=== PATIENT | female | born 1950 | race Two or more races ===

== ENCOUNTER → 2016-07-06 | Outpatient (CLI) | payer OTHER, MEDICAID ==
[~2016-07-06] MED LIST: GLIM2TAB33 PO; HYDR12.56 PO; LOSA25TA9 PO; LOVA20TA4 PO; METF-316 PO
[2016-07-06 10:13] LABS: Basophils # (auto) 0 uL; Basophils % (auto) 0.4 % (0.0-2.0); Eosinophils # (auto) 0.1 uL; Hematocrit 45.4 % (36.0-46.0); Hemoglobin 14.9 g/dL (12.2-16.2); Lymphocytes # (auto) 2.7 uL; Lymphocytes % (auto) 38.9 % (10.0-50.0); Mean Corpuscular Hemoglobin 27.8 pg (28.0-32.0); Mean Corpuscular Hgb Conc. 32.9 g/dL (32.0-36.0); Mean Corpuscular Volume 84.5 fL (80.0-100.0); Mean Platelet Volume 7.8 fL (7.4-10.4); Monocytes # (auto) 0.4 uL; Monocytes % (auto) 5.6 % (0.0-12.0); Neutrophils # (auto) 3.7 uL; Neutrophils % (auto) 53.1 % (37.0-80.0); Platelet Count (auto) 426 10^3/uL (140-450); Red Cell Distribution Width 13.6 % (11.6-16.0)
[2016-07-06 10:25] LABS: Urine Bilirubin Negative (Negative); Urine Blood TRACE /uL (Negative); Urine Color Yellow (Yellow); Urine Ketone Negative (Negative); Urine Nitrite Negative (Negative); Urine RBC 5 /hpf (0 - 4); Urine Squamous Epithelial Cell FEW /hpf (<5); Urine Urobilinogen Normal (Negative)
[2016-07-06 10:27] LABS: BUN/Creatinine Ratio 21.5; Bilirubin, Total 0.4 mg/dL (0.2-1.0); Calcium 9.1 mg/dL (8.5-10.1); Potassium 4.5 mmol/L (3.5-5.1); Total Protein 8.1 g/dL (6.4-8.2)
[2016-07-06 10:34] LABS: Urine Glucose 4+ mg/dL (Normal)
== END | disposition home or self-care (01) ==
LOC: LAB 08:31
DX: E11.9 Type 2 diabetes mellitus without complications (principal)
CPT/HCPCS: 36415; 80053; 80061; 81001; 82043; 83036; 84443; 85025

== ENCOUNTER → 2016-10-29 | Outpatient (CLI) | payer OTHER ==
[~2016-10-29] MED LIST changes: -METF-316 PO; +METF-372 PO
== END | disposition home or self-care (01) ==
LOC: LAB 12:12
PROVIDERS: ATTEND Internal Medicine Cardiovascular Disease
DX: R07.9 Chest pain, unspecified (principal)
CPT/HCPCS: 36415; 82565; 84520

== ENCOUNTER → 2016-10-30 | Outpatient (CLI) | payer OTHER ==
[~2016-10-30] MED LIST changes: +IOHEXOL 350 MG/ML 100ML IJ ONE; +METOPROLOL TARTRATE 1MG/1ML-5ML VIAL IV ONE; +NITROGLYCERIN 0.4 MG SL TAB SL ONE
== END | disposition home or self-care (01) ==
LOC: CT 10:19
PROVIDERS: ATTEND Internal Medicine Cardiovascular Disease
DX: R07.9 Chest pain, unspecified (principal)
CPT/HCPCS: 75571; Q9967

== ENCOUNTER → 2016-11-18 | Outpatient (CLI) | payer OTHER ==
[~2016-11-18] MED LIST changes: -IOHEXOL 350 MG/ML 100ML IJ ONE; -METOPROLOL TARTRATE 1MG/1ML-5ML VIAL IV ONE; -NITROGLYCERIN 0.4 MG SL TAB SL ONE
== END | disposition home or self-care (01) ==
LOC: XYW 09:51
PROVIDERS: ATTEND Internal Medicine Cardiovascular Disease
DX: R07.9 Chest pain, unspecified (principal)
CPT/HCPCS: 93306

== ENCOUNTER → 2016-12-11 | Day surgery (SDC) | payer OTHER ==
[~2016-12-11] MED LIST changes: +ANGIOMAX 250 MG VIAL IV ONE; +ASPI81CH43 PO; +CANA300T OR; +ESCI10TA53 PO; -GLIM2TAB33 PO; -HYDR12.56 PO; +IODIXANOL 320MG/ML 100ML BTL IV ONE; +LIDOCAINE 2%HCL (LOCAL ANESTH.) INJ 20ML MDV ONE; +METO25TA62 PO; +MIDAZOLAM HCL 1MG/1ML-2 ML VIAL ONE; +SODIUM CHL 0.9% 0 ML ONE; +fentaNYL CITRATE 100 MCG/2 ML VL ONE
== END | disposition home or self-care (01) ==
LOC: CATH 09:57
PROVIDERS: ATTEND Internal Medicine Cardiovascular Disease
DX: I25.10 Atherosclerotic heart disease of native coronary artery without angina pectoris (principal)
CPT/HCPCS: 93454; C1760; C1894; J1644; J2250; J3010; J7030; Q9967

== ENCOUNTER → 2017-09-08 | Outpatient (CLI) | payer OTHER ==
[~2017-09-08] MED LIST changes: -ANGIOMAX 250 MG VIAL IV ONE; -IODIXANOL 320MG/ML 100ML BTL IV ONE; -LIDOCAINE 2%HCL (LOCAL ANESTH.) INJ 20ML MDV ONE; -MIDAZOLAM HCL 1MG/1ML-2 ML VIAL ONE; -SODIUM CHL 0.9% 0 ML ONE; -fentaNYL CITRATE 100 MCG/2 ML VL ONE
[2017-09-08 10:58] LABS: Basophils # (auto) 0 uL; Basophils % (auto) 0.6 % (0.0-2.0); Eosinophils # (auto) 0.1 uL; Eosinophils % (auto) 1.7 % (0.0-7.0); Hematocrit 45.1 % (36.0-46.0); Hemoglobin 14.9 g/dL (12.2-16.2); Lymphocytes # (auto) 2.2 uL; Lymphocytes % (auto) 39.8 % (10.0-50.0); Mean Corpuscular Hemoglobin 28.3 pg (28.0-32.0); Mean Corpuscular Hgb Conc. 32.9 g/dL (32.0-36.0); Mean Corpuscular Volume 85.8 fL (80.0-100.0); Monocytes # (auto) 0.3 uL; Neutrophils # (auto) 2.9 uL; Neutrophils % (auto) 52.9 % (37.0-80.0); Platelet Count (auto) 381 10^3/uL (140-450); Red Blood Cells 5.26 10^6/uL (4.0-5.20); Red Cell Distribution Width 13.7 % (11.8-14.3); White Blood Cell 5.6 10^3/uL (4.4-10.8)
[2017-09-08 11:31] LABS: Urine Bacteria NONE SEEN /hpf (None Seen); Urine Blood Negative /uL (Negative); Urine Mucus FEW (None Seen); Urine Specific Gravity 1.027 (1.001-1.035); Urine WBC 3 /hpf (0 - 5)
[2017-09-08 11:40] LABS: Free T4 (Free Thyroxine) 1.01 ng/dL (0.89-1.76)
[2017-09-08 11:44] LABS: BUN/Creatinine Ratio 17.8; Bilirubin, Total 0.5 mg/dL (0.2-1.0); Calcium 9.3 mg/dL (8.5-10.1); Potassium 4.3 mmol/L (3.5-5.1)
== END | disposition home or self-care (01) ==
LOC: LAB 10:29
PROVIDERS: ATTEND Internal Medicine
DX: I10 Essential (primary) hypertension (principal); E11.9 Type 2 diabetes mellitus without complications; M25.50 Pain in unspecified joint; Z79.82 Long term (current) use of aspirin; Z79.899 Other long term (current) drug therapy
CPT/HCPCS: 36415; 80053; 80061; 81001; 82043; 82607; 83036; 84439; 84443; 85025; 85379; 85652; 86225; 86235

== ENCOUNTER → 2018-02-25 | Outpatient (CLI) | payer OTHER ==
[~2018-02-25] MED LIST changes: +LOSA25TA40 PO; -LOSA25TA9 PO
[2018-02-25 11:51] LABS: Cholesterol 202 mg/dL (< 200); Triglycerides 225 mg/dL (< 150)
[2018-02-25 11:53] LABS: HDL Cholesterol 47 mg/dL (40-59); LDL Cholesterol 136 mg/dL (< 100)
== END | disposition home or self-care (01) ==
LOC: LAB 10:19
PROVIDERS: ATTEND Internal Medicine
DX: E11.9 Type 2 diabetes mellitus without complications (principal); E78.00 Pure hypercholesterolemia, unspecified
CPT/HCPCS: 36415; 80061; 83036

== ENCOUNTER → 2018-08-30 | Outpatient (CLI) | payer OTHER ==
[2018-08-30 13:07] LABS: Cholesterol 164 mg/dL (< 200); HDL Cholesterol 50 mg/dL (40-59); LDL Cholesterol 101 mg/dL (< 100); Triglycerides 142 mg/dL (< 150)
== END | disposition home or self-care (01) ==
LOC: LAB 10:14
PROVIDERS: ATTEND Internal Medicine
DX: E11.9 Type 2 diabetes mellitus without complications (principal); E78.5 Hyperlipidemia, unspecified
CPT/HCPCS: 36415; 80061; 83036

== ENCOUNTER → 2018-12-20 | Outpatient (CLI) | payer OTHER ==
[~2018-12-20] MED LIST changes: +ALBUTEROL SULF 2.5 MG/0.5ML(0.5%) NEB SOLN ONE; +LOSA25TA38 PO; -LOSA25TA40 PO
== END | disposition home or self-care (01) ==
LOC: RT 08:38
PROVIDERS: ATTEND Internal Medicine Pulmonary Disease
DX: R91.1 Solitary pulmonary nodule (principal)
CPT/HCPCS: 94060; J7611

== ENCOUNTER → 2019-03-13 | Outpatient (CLI) | payer OTHER ==
[~2019-03-13] MED LIST changes: -ALBUTEROL SULF 2.5 MG/0.5ML(0.5%) NEB SOLN ONE
== END | disposition home or self-care (01) ==
LOC: LAB 11:27
PROVIDERS: ATTEND Internal Medicine
DX: M54.2 Cervicalgia (principal); R91.8 Other nonspecific abnormal finding of lung field; I25.10 Atherosclerotic heart disease of native coronary artery without angina pectoris; Z88.5 Allergy status to narcotic agent
CPT/HCPCS: 36415; 82565; 84520

== ENCOUNTER → 2019-03-17 | Outpatient (CLI) | payer OTHER ==
[2019-03-17 08:18] LABS: Basophils # (auto) 0 uL; Basophils % (auto) 0.3 % (0.0-2.0); Eosinophils # (auto) 0.1 uL; Eosinophils % (auto) 1.1 % (0.0-7.0); Hematocrit 46.7 % (36.0-46.0); Hemoglobin 15.3 g/dL (12.2-16.2); Lymphocytes # (auto) 2.3 uL; Lymphocytes % (auto) 33.4 % (10.0-50.0); Mean Corpuscular Hemoglobin 28.3 pg (28.0-32.0); Mean Corpuscular Hgb Conc. 32.9 g/dL (32.0-36.0); Mean Corpuscular Volume 86.2 fL (80.0-100.0); Monocytes # (auto) 0.4 uL; Monocytes % (auto) 5.7 % (0.0-12.0); Neutrophils # (auto) 4.1 uL; Neutrophils % (auto) 59.5 % (37.0-80.0); Nucleated Red Blood Cells % 0.3 %; Platelet Count (auto) 355 10^3/uL (140-450); Red Blood Cells 5.42 10^6/uL (4.0-5.20); Red Cell Distribution Width 13.3 % (11.8-14.3); White Blood Cell 6.9 10^3/uL (4.4-10.8)
[2019-03-17 08:20] LABS: Urine Bacteria FEW /hpf (None Seen); Urine Blood TRACE /uL (Negative); Urine Specific Gravity 1.042 (1.001-1.035); Urine WBC 2 /hpf (0 - 5)
[2019-03-17 08:54] LABS: Free T4 (Free Thyroxine) 1.12 ng/dL (0.89-1.76)
[2019-03-17 08:59] LABS: Potassium 4.4 mmol/L (3.5-5.1)
[2019-03-17 09:03] LABS: Albumin 3.9 g/dL (3.4-5.0); BUN/Creatinine Ratio 17.9; Calcium 8.9 mg/dL (8.5-10.1)
[2019-03-17 09:06] LABS: Bilirubin, Total 0.6 mg/dL (0.2-1.0); Total Protein 7.9 g/dL (6.4-8.2)
== END | disposition home or self-care (01) ==
LOC: LAB 07:47
PROVIDERS: ATTEND Internal Medicine
DX: E11.42 Type 2 diabetes mellitus with diabetic polyneuropathy (principal); I25.10 Atherosclerotic heart disease of native coronary artery without angina pectoris; Z88.5 Allergy status to narcotic agent
CPT/HCPCS: 36415; 80053; 80061; 81001; 82043; 82607; 83036; 84439; 84443; 85025; 85652

== ENCOUNTER → 2019-07-14 | Outpatient (CLI) | payer OTHER ==
[~2019-07-14] MED LIST changes: -METO25TA62 PO; +METO25TA93 PO
== END | disposition home or self-care (01) ==
LOC: LAB 10:25
PROVIDERS: ATTEND Internal Medicine
DX: E11.21 Type 2 diabetes mellitus with diabetic nephropathy (principal); E04.1 Nontoxic single thyroid nodule
CPT/HCPCS: 36415; 83036; 86376

== ENCOUNTER → 2019-08-30 | Outpatient (CLI) | payer OTHER | END | disposition home or self-care (01) | LOC: US 10:34 | PROVIDERS: ATTEND Internal Medicine | DX: E04.1 Nontoxic single thyroid nodule (principal); Z88.5 Allergy status to narcotic agent; Z79.899 Other long term (current) drug therapy; Z98.890 Other specified postprocedural states | CPT/HCPCS: 10005; 10022; 76942 ==

== ENCOUNTER → 2019-12-01 | Outpatient (CLI) | payer OTHER ==
[2019-12-01 09:16] LABS: Potassium 4.2 mmol/L (3.5-5.1)
[2019-12-01 09:23] LABS: Albumin 3.9 g/dL (3.4-5.0); BUN/Creatinine Ratio 26.3; Bilirubin, Total 0.6 mg/dL (0.2-1.0); Total Protein 7.8 g/dL (6.4-8.2)
== END | disposition home or self-care (01) ==
LOC: LAB 08:21
PROVIDERS: ATTEND Internal Medicine
DX: E11.9 Type 2 diabetes mellitus without complications (principal); E78.00 Pure hypercholesterolemia, unspecified
CPT/HCPCS: 36415; 80053; 83036; 83721; 84439; 84443

== ENCOUNTER → 2021-07-11 | Outpatient (CLI) | payer OTHER ==
[~2021-07-11] MED LIST changes: +ESCI-28 PO; -ESCI10TA53 PO
[2021-07-11 09:56] LABS: Urine Bacteria NONE SEEN /hpf (None Seen); Urine Blood Negative /uL (Negative); Urine Mucus FEW (None Seen); Urine Specific Gravity 1.025 (1.001-1.035); Urine WBC 9 /hpf (0 - 5)
[2021-07-11 10:11] LABS: Potassium 4.3 mmol/L (3.5-5.1)
[2021-07-11 10:23] LABS: BUN/Creatinine Ratio 24.7; Bilirubin, Total 0.3 mg/dL (0.2-1.0); Calcium 9.4 mg/dL (8.5-10.1); Total Protein 7.8 g/dL (6.4-8.2)
[2021-07-11 11:10] LABS: Basophils # (auto) 0.2 10 ^3/uL (0-0.2); Basophils % (auto) 2.5 % (0.0-2.0); Eosinophils # (auto) 0.1 10 ^3/uL (0-0.8); Eosinophils % (auto) 2.1 % (0.0-7.0); Hematocrit 40.7 % (36.0-46.0); Hemoglobin 13.6 g/dL (12.2-16.2); Lymphocytes # (auto) 2.3 10 ^3/uL (0.4-5.4); Lymphocytes % (auto) 36.5 % (10.0-50.0); Mean Corpuscular Hemoglobin 28.5 pg (28.0-32.0); Mean Corpuscular Hgb Conc. 33.5 g/dL (32.0-36.0); Mean Corpuscular Volume 85.1 fL (80.0-100.0); Monocytes # (auto) 0.3 10 ^3/uL (0-1.3); Monocytes % (auto) 5.3 % (0.0-12.0); Neutrophils # (auto) 3.4 10 ^3/uL (1.6-8.6); Neutrophils % (auto) 53.6 % (37.0-80.0); Nucleated Red Blood Cells % 0.1 %; Red Blood Cells 4.79 10^6/uL (4.0-5.20); Red Cell Distribution Width 13.2 % (11.8-14.3); White Blood Cell 6.3 10^3/uL (4.4-10.8)
== END | disposition home or self-care (01) ==
LOC: LAB 09:09
PROVIDERS: ATTEND Internal Medicine
DX: E11.9 Type 2 diabetes mellitus without complications (principal); I10 Essential (primary) hypertension
CPT/HCPCS: 36415; 80053; 80061; 81001; 82043; 82607; 83036; 84439; 84443; 85025; 85652

== ENCOUNTER → 2022-01-01 | Outpatient (CLI) | payer OTHER ==
[2022-01-01 14:18] LABS: Basophils # (auto) 0 10 ^3/uL (0-0.2); Basophils % (auto) 0.5 % (0.0-2.0); Eosinophils # (auto) 0.2 10 ^3/uL (0-0.8); Eosinophils % (auto) 2.2 % (0.0-7.0); Hematocrit 42.7 % (36.0-46.0); Hemoglobin 13.9 g/dL (12.2-16.2); Lymphocytes # (auto) 2.8 10 ^3/uL (0.4-5.4); Lymphocytes % (auto) 39.8 % (10.0-50.0); Mean Corpuscular Hgb Conc. 32.5 g/dL (32.0-36.0); Mean Corpuscular Volume 86.2 fL (80.0-100.0); Monocytes # (auto) 0.4 10 ^3/uL (0-1.3); Monocytes % (auto) 5.6 % (0.0-12.0); Neutrophils # (auto) 3.7 10 ^3/uL (1.6-8.6); Neutrophils % (auto) 51.9 % (37.0-80.0); Red Blood Cells 4.95 10^6/uL (4.0-5.20); Red Cell Distribution Width 13.7 % (11.8-14.3); White Blood Cell 7.1 10^3/uL (4.4-10.8)
[2022-01-01 15:11] LABS: Albumin 4.2 g/dL (3.4-5.0); Calcium 8.8 mg/dL (8.5-10.1); Potassium 4.2 mmol/L (3.5-5.1)
[2022-01-01 15:14] LABS: Bilirubin, Total 0.4 mg/dL (0.2-1.0); Total Protein 7.8 g/dL (6.4-8.2)
[2022-01-01 15:23] LABS: % Iron Saturation 11.1 % (15-50)
== END | disposition home or self-care (01) ==
LOC: LAB 13:52
PROVIDERS: ATTEND Internal Medicine
DX: E11.9 Type 2 diabetes mellitus without complications (principal); I10 Essential (primary) hypertension; L65.9 Nonscarring hair loss, unspecified
CPT/HCPCS: 36415; 80053; 83036; 83540; 83550; 84439; 84443; 85025

== ENCOUNTER → 2022-01-12 | Outpatient (CLI) | payer OTHER | END | disposition home or self-care (01) | LOC: XYW 08:41 | PROVIDERS: ATTEND Internal Medicine | DX: I34.0 Nonrheumatic mitral (valve) insufficiency (principal); I10 Essential (primary) hypertension | CPT/HCPCS: 93306 ==

== ENCOUNTER → 2022-01-30 | Outpatient (CLI) | payer OTHER | END | disposition home or self-care (01) | LOC: XYW 08:50 | PROVIDERS: ATTEND Internal Medicine | DX: Z01.810 Encounter for preprocedural cardiovascular examination (principal) | CPT/HCPCS: 78452; 93017; A9500 ==

== ENCOUNTER 2022-03-11 07:06 | Inpatient (IN) | payer OTHER ==
[2022-03-10 10:36] LABS: Basophils # (auto) 0 10 ^3/uL (0-0.2); Basophils % (auto) 0.5 % (0.0-2.0); Eosinophils # (auto) 0.1 10 ^3/uL (0-0.8); Eosinophils % (auto) 1.4 % (0.0-7.0); Hematocrit 41.3 % (36.0-46.0); Lymphocytes % (auto) 39.4 % (10.0-50.0); Mean Corpuscular Hemoglobin 28.8 pg (28.0-32.0); Mean Corpuscular Hgb Conc. 33.8 g/dL (32.0-36.0); Mean Corpuscular Volume 85.2 fL (80.0-100.0); Monocytes # (auto) 0.4 10 ^3/uL (0-1.3); Monocytes % (auto) 4.9 % (0.0-12.0); Neutrophils % (auto) 53.8 % (37.0-80.0); Nucleated Red Blood Cells % 0.1 %; Red Blood Cells 4.85 10^6/uL (4.0-5.20); Red Cell Distribution Width 13.2 % (11.8-14.3); White Blood Cell 7.5 10^3/uL (4.4-10.8)
[2022-03-10 10:57] LABS: INR 0.95 (0.9-1.15); Partial Thromboplastin Time 29.4 sec (24.6-33.4)
[2022-03-10 11:01] LABS: Urine Bacteria NONE SEEN /hpf (None Seen); Urine Blood Negative /uL (Negative); Urine Specific Gravity 1.015 (1.001-1.035); Urine WBC 5 /hpf (0 - 5)
[2022-03-10 11:48] LABS: Albumin 3.9 g/dL (3.4-5.0); BUN/Creatinine Ratio 22.4; Calcium 9.2 mg/dL (8.5-10.1); Potassium 4.3 mmol/L (3.5-5.1)
[2022-03-10 11:55] LABS: Bilirubin, Total 0.8 mg/dL (0.2-1.0); Total Protein 7.9 g/dL (6.4-8.2)
[~2022-03-11] VITALS: Ht 157.5 cm; Wt 69.8 kg
[2022-03-11] VITALS (20 sets, daily range): BP systolic 122–171; BP diastolic 45–69
[~2022-03-11 07:06] MED LIST changes: -ESCI-28 PO; +GLIP-110 PO; +IRBE300T79 PO; -LOSA25TA38 PO
[2022-03-11] MEDS ORDERED: ceFAZolin 1GM/50ML 100 ML IV ONE (07:16)
[2022-03-11] MEDS ORDERED: fentaNYL CITRATE 100 MCG/2 ML VL ONE ×2 (08:40→09:44)
[2022-03-11] MEDS ORDERED: ROCURONIUM 10MG/ML 10ML VIAL IV ONE (08:40)
[2022-03-11] MEDS ORDERED: MIDAZOLAM HCL 2MG/2ML 2ml VIAL (1mg/ml) ONE (08:40)
[2022-03-11] MEDS ORDERED: ONDANSETRON HCL 4 MG/2 ML VIAL IV PRN ×2 (10:45→11:15)
[2022-03-11] MEDS: D5W/SOD CHL 0.45%/KCL 20MEQ 1,000 ML IV SCH ×2 (10:45→20:01)
[2022-03-11] MEDS ORDERED: HYDROmorphone HCL 2 MG/ML VL/or syr IV PRN ×2 (10:45→11:15)
[2022-03-11] MEDS ORDERED: GLYCOPYRROLATE 0.2 MG/ML 1ML VIAL ONE (10:54)
[2022-03-11] MEDS ORDERED: PROPOFOL 10 MG/ML 20 ML IV ONE (10:54)
[2022-03-11] MEDS ORDERED: ePHEDrine SULFATE 50 MG/ML AMP ONE (10:54)
[2022-03-11] MEDS ORDERED: NEOSTIGMINE 1 MG/ML INJ (10mg/10ML VIAL) ONE (10:54)
[2022-03-11] MEDS ORDERED: LIDOCAINE 2% (LOCAL ANESTH.) PF 5ml SDV ONE (10:54)
[2022-03-11] MEDS ORDERED: ONDANSETRON HCL 4 MG/2 ML VIAL ONE (10:55)
[2022-03-11] MEDS ORDERED: HYDROmorphone HCL 2 MG/ML VL/or syr ONE (11:36)
[2022-03-11] MEDS: HYDROmorphone HCL 2 MG/ML VL/or syr IV PRN ×2 (11:37→11:54)
[2022-03-11] MEDS ORDERED: DEXTROSE (50%) 50ML SYRG IV PRN (14:45)
[2022-03-11] MEDS ORDERED: MORPHINE SULFATE INJ 2 MG/ml SYRG IV PRN (14:45)
[2022-03-11] MEDS ORDERED: HYDROcodone-ACET 5/325MG TAB PO PRN (14:45)
[2022-03-11] MEDS ORDERED: FAMOTIDINE (10MG/ML) 2ML VL IV ONE (14:45)
[2022-03-11] MEDS ORDERED: METOPROLOL SUCCINATE XL 50 MG TAB PO ONE (14:45)
[2022-03-11] MEDS: ceFAZolin 1GM/50ML 50 ML IV SCH ×2 (15:18→22:28)
[2022-03-11] MEDS: ACCU-CHEK COMFORT CURVE STRIP VI SCH ×2 (17:36→23:53)
[2022-03-11] MEDS: InsuLIN REG 1unit/0.01ml Soln (100units/ml) SC SCH ×2 (17:41→23:53)
[2022-03-12] VITALS (60 sets, daily range): BP systolic 94–142; BP diastolic 30–96
[2022-03-12 04:40] LABS: Basophils # (auto) 0 10 ^3/uL (0-0.2); Basophils % (auto) 0.3 % (0.0-2.0); Eosinophils # (auto) 0.1 10 ^3/uL (0-0.8); Eosinophils % (auto) 1.1 % (0.0-7.0); Hematocrit 37.7 % (36.0-46.0); Hemoglobin 12.5 g/dL (12.2-16.2); Lymphocytes # (auto) 2.3 10 ^3/uL (0.4-5.4); Lymphocytes % (auto) 25.5 % (10.0-50.0); Mean Corpuscular Hemoglobin 29.2 pg (28.0-32.0); Mean Corpuscular Hgb Conc. 33.2 g/dL (32.0-36.0); Monocytes # (auto) 0.9 10 ^3/uL (0-1.3); Monocytes % (auto) 9.5 % (0.0-12.0); Neutrophils # (auto) 5.8 10 ^3/uL (1.6-8.6); Neutrophils % (auto) 63.6 % (37.0-80.0); Nucleated Red Blood Cells % 0.1 %; Red Blood Cells 4.28 10^6/uL (4.0-5.20); White Blood Cell 9.1 10^3/uL (4.4-10.8)
[2022-03-12 04:46] LABS: Albumin 3.2 g/dL (3.4-5.0); Calcium 8.2 mg/dL (8.5-10.1); Potassium 4.2 mmol/L (3.5-5.1)
[2022-03-12 04:49] LABS: BUN/Creatinine Ratio 6.1; Bilirubin, Total 0.7 mg/dL (0.2-1.0); Total Protein 6.2 g/dL (6.4-8.2)
[2022-03-12] MEDS: ceFAZolin 1GM/50ML 50 ML IV SCH ×3 (05:52→21:33)
[2022-03-12] MEDS: ACCU-CHEK COMFORT CURVE STRIP VI SCH ×3 (06:14→16:44)
[2022-03-12] MEDS: InsuLIN REG 1unit/0.01ml Soln (100units/ml) SC SCH ×3 (06:14→17:03)
[2022-03-12] MEDS: D5W/SOD CHL 0.45%/KCL 20MEQ 1,000 ML IV SCH (06:51)
[2022-03-12] MEDS: FAMOTIDINE (10MG/ML) 2ML VL IV SCH (09:01)
[2022-03-12] MEDS: PANTOPRAZOLE 40 MG/10 ML VIAL INJ IV SCH (09:02)
[2022-03-12] MEDS: METOPROLOL SUCCINATE XL 50 MG TAB PO SCH (09:03)
[2022-03-12] MEDS ORDERED: D5W/SOD CHL 0.45%/KCL 20MEQ 1,000 ML IV SCH (14:45)
[2022-03-12] MEDS: SODIUM CHLORIDE 0.9% 1,000 ML IV SCH (14:56)
[2022-03-12] MEDS: ACETAMINOPHEN 325 MG TAB PO PRN (14:59)
[2022-03-13] VITALS (9 sets, daily range): BP systolic 125–151; BP diastolic 39–63
[2022-03-13] MEDS: ACCU-CHEK COMFORT CURVE STRIP VI SCH ×3 (00:01→11:39)
[2022-03-13 04:29] LABS: Basophils # (auto) 0 10 ^3/uL (0-0.2); Basophils % (auto) 0.3 % (0.0-2.0); Eosinophils # (auto) 0.1 10 ^3/uL (0-0.8); Eosinophils % (auto) 1.2 % (0.0-7.0); Hematocrit 37.6 % (36.0-46.0); Hemoglobin 12.3 g/dL (12.2-16.2); Lymphocytes # (auto) 2.2 10 ^3/uL (0.4-5.4); Lymphocytes % (auto) 26.8 % (10.0-50.0); Mean Corpuscular Hemoglobin 28.1 pg (28.0-32.0); Mean Corpuscular Hgb Conc. 32.8 g/dL (32.0-36.0); Mean Corpuscular Volume 85.8 fL (80.0-100.0); Monocytes # (auto) 0.8 10 ^3/uL (0-1.3); Monocytes % (auto) 10.1 % (0.0-12.0); Neutrophils # (auto) 5.2 10 ^3/uL (1.6-8.6); Neutrophils % (auto) 61.6 % (37.0-80.0); Nucleated Red Blood Cells % 0.1 %; Red Blood Cells 4.38 10^6/uL (4.0-5.20); White Blood Cell 8.4 10^3/uL (4.4-10.8)
[2022-03-13 04:43] LABS: Calcium 8.2 mg/dL (8.5-10.1)
[2022-03-13] MEDS: ceFAZolin 1GM/50ML 50 ML IV SCH ×2 (05:32→14:00)
[2022-03-13] MEDS: ACETAMINOPHEN 325 MG TAB PO PRN ×2 (05:33→12:32)
[2022-03-13] MEDS: InsuLIN REG 1unit/0.01ml Soln (100units/ml) SC SCH ×3 (06:35→11:39)
[2022-03-13] MEDS: SODIUM CHLORIDE 0.9% 1,000 ML IV SCH (07:25)
[2022-03-13] MEDS: FAMOTIDINE (10MG/ML) 2ML VL IV SCH (09:14)
[2022-03-13] MEDS: PANTOPRAZOLE 40 MG/10 ML VIAL INJ IV SCH (09:14)
[2022-03-13] MEDS: METOPROLOL SUCCINATE XL 50 MG TAB PO SCH (09:15)
== END 2022-03-13 16:30 | disposition home or self-care (01) | DRG 627 ==
LOC: SUR 07:06 → TELE 11:41 → ICU WEST 13:02 → TELE-WESTW 03-13 12:58
PROVIDERS: ADMIT Internal Medicine; ATTEND Internal Medicine
PROC: 0GTG0ZZ Resection of Left Thyroid Gland Lobe, Open Approach (ICD-10-PCS; principal; 2022-03-11 08:39)
DX: E07.9 Disorder of thyroid, unspecified (principal); E11.9 Type 2 diabetes mellitus without complications; E78.5 Hyperlipidemia, unspecified; E83.51 Hypocalcemia; I10 Essential (primary) hypertension; Z20.822 Contact with and (suspected) exposure to COVID-19; Z88.5 Allergy status to narcotic agent
CPT/HCPCS: 36415; 80048; 80053; 81001; 82962; 85025; 85610; 85730; 86850; 86900; 86901; 87081; C9113; G0378; J0690; J2001; J2250; J2405; J2704; J3490

== ENCOUNTER → 2022-05-01 | Outpatient (CLI) | payer OTHER | END | disposition home or self-care (01) | LOC: LAB 10:43 | PROVIDERS: ATTEND Internal Medicine | DX: E89.0 Postprocedural hypothyroidism (principal) | CPT/HCPCS: 36415; 84439; 84443 ==

== ENCOUNTER → 2022-06-02 | Outpatient (CLI) | payer OTHER ==
[2022-06-02 08:52] LABS: Basophils # (auto) 0 10 ^3/uL (0-0.2); Basophils % (auto) 0.6 % (0.0-2.0); Eosinophils # (auto) 0.1 10 ^3/uL (0-0.8); Eosinophils % (auto) 1.8 % (0.0-7.0); Hematocrit 43.8 % (36.0-46.0); Lymphocytes # (auto) 2.3 10 ^3/uL (0.4-5.4); Lymphocytes % (auto) 32.7 % (10.0-50.0); Mean Corpuscular Hemoglobin 27.5 pg (28.0-32.0); Mean Corpuscular Volume 86.1 fL (80.0-100.0); Monocytes # (auto) 0.4 10 ^3/uL (0-1.3); Monocytes % (auto) 5.4 % (0.0-12.0); Neutrophils # (auto) 4.2 10 ^3/uL (1.6-8.6); Neutrophils % (auto) 59.5 % (37.0-80.0); Red Blood Cells 5.09 10^6/uL (4.0-5.20); Red Cell Distribution Width 13.7 % (11.8-14.3)
[2022-06-02 08:58] LABS: Urine Bacteria NONE SEEN /hpf (None Seen); Urine Blood Negative /uL (Negative); Urine Mucus FEW (None Seen); Urine Specific Gravity 1.024 (1.001-1.035); Urine WBC 4 /hpf (0 - 5)
[2022-06-02 09:27] LABS: Potassium 4.7 mmol/L (3.5-5.1)
[2022-06-02 09:33] LABS: Free T4 (Free Thyroxine) 1.19 ng/dL (0.89-1.76)
[2022-06-02 09:35] LABS: Albumin 4.2 g/dL (3.4-5.0); BUN/Creatinine Ratio 28.2; Bilirubin, Total 0.5 mg/dL (0.2-1.0); Calcium 9.2 mg/dL (8.5-10.1)
[2022-06-02 09:37] LABS: Micro Albumin 21.3 mg/L (0-30.0)
== END | disposition home or self-care (01) ==
LOC: LAB 08:33
PROVIDERS: ATTEND Internal Medicine
DX: I10 Essential (primary) hypertension (principal); E11.9 Type 2 diabetes mellitus without complications
CPT/HCPCS: 36415; 80053; 80061; 81001; 82043; 82570; 82607; 83036; 84439; 84443; 85025; 85652

== ENCOUNTER → 2022-12-21 | Outpatient (CLI) | payer OTHER ==
[2022-12-21 15:58] LABS: Hematocrit 41.4 % (36.0-46.0); Hemoglobin 13.6 g/dL (12.2-16.2); Mean Corpuscular Hgb Conc. 32.9 g/dL (32.0-36.0); Mean Corpuscular Volume 85.1 fL (80.0-100.0); Red Blood Cells 4.86 10^6/uL (4.0-5.20); Red Cell Distribution Width 13.9 % (11.8-14.3); White Blood Cell 10.9 10^3/uL (4.4-10.8)
[2022-12-21 16:03] LABS: Basophils % (manual) 0 (0.0-2.0); Blast Cells 0; Metamyelocytes % 0; Myelocytes % 0; Promyelocytes % 0; Reactive Lymphocytes 0
[2022-12-21 16:31] LABS: Albumin 4.1 g/dL (3.4-5.0); Potassium 3.5 mmol/L (3.5-5.1)
[2022-12-21 16:34] LABS: BUN/Creatinine Ratio 13.6 (10.0-20.0); Bilirubin, Total 0.4 mg/dL (0.2-1.0); Total Protein 7.5 g/dL (6.4-8.2)
[2022-12-21 17:53] LABS: Band Neutrophils % (manual) 0; Eosinophils % (manual) 1 (0-7); Lymphocytes % (manual) 56 (10.0-50.0); Monocytes % (manual) 9 (0-12)
[2022-12-21 17:54] LABS: Platelet Estimate Adequate; RBC Morphology Normal
== END | disposition home or self-care (01) ==
LOC: LAB 15:44
PROVIDERS: ATTEND Internal Medicine
DX: E11.9 Type 2 diabetes mellitus without complications (principal); I10 Essential (primary) hypertension
CPT/HCPCS: 36415; 80053; 83036; 85007; 85027

== ENCOUNTER → 2022-12-31 | Outpatient (CLI) | payer OTHER ==
[2022-12-31 11:26] LABS: Basophils # (auto) 0 10 ^3/uL (0-0.2); Basophils % (auto) 0.5 % (0.0-2.0); Eosinophils # (auto) 0.2 10 ^3/uL (0-0.8); Eosinophils % (auto) 2.2 % (0.0-7.0); Hematocrit 42.8 % (36.0-46.0); Lymphocytes % (auto) 36.1 % (10.0-50.0); Mean Corpuscular Hemoglobin 27.8 pg (28.0-32.0); Mean Corpuscular Hgb Conc. 32.7 g/dL (32.0-36.0); Monocytes # (auto) 0.4 10 ^3/uL (0-1.3); Monocytes % (auto) 5.4 % (0.0-12.0); Neutrophils # (auto) 4.7 10 ^3/uL (1.6-8.6); Neutrophils % (auto) 55.8 % (37.0-80.0); Red Blood Cells 5.03 10^6/uL (4.0-5.20); Red Cell Distribution Width 13.9 % (11.8-14.3); White Blood Cell 8.4 10^3/uL (4.4-10.8)
[2022-12-31 11:53] LABS: Erythrocyte Sedimentation Rate 7 mm/hr (0-20)
== END | disposition home or self-care (01) ==
LOC: LAB 10:59
PROVIDERS: ATTEND Internal Medicine
DX: L30.9 Dermatitis, unspecified (principal)
CPT/HCPCS: 36415; 83615; 84439; 85025; 85652

== ENCOUNTER → 2024-02-22 | Outpatient (CLI) | payer OTHER ==
[2024-02-22 11:03] LABS: Alanine Aminotransferase 18 U/L (7-40); Alkaline Phosphatase 121 U/L (46-116); Anion Gap 7 (5-15); Aspartate Aminotransferase 11 U/L (13-40); BUN/Creatinine Ratio 21.6 (10.0-20.0); Blood Urea Nitrogen 16 mg/dL (9-23); Carbon Dioxide 27 mmol/L (20-31); Chloride 106 mmol/L (98-107); Creatinine, Urine 84.78 mg/dL (30.0-125.0); Glucose 111 mg/dL (74-106); LDL Cholesterol 76 mg/dL (< 100); Potassium 4.4 mmol/L (3.5-5.1); Sodium 140 mmol/L (136-145); Triglycerides 197 mg/dL (< 150)
[2024-02-22 11:04] LABS: Bilirubin, Total 0.7 mg/dL (0.2-1.0); Cholesterol 146 mg/dL (< 200); HDL Cholesterol 47 mg/dL (40-59); Total Protein 8.1 g/dL (5.7-8.2)
== END | disposition home or self-care (01) ==
LOC: LAB 09:46
PROVIDERS: ATTEND Internal Medicine Endocrinology, Diabetes & Metabolism
DX: E11.65 Type 2 diabetes mellitus with hyperglycemia (principal); E04.2 Nontoxic multinodular goiter
CPT/HCPCS: 36415; 80053; 80061; 82043; 82570; 83036; 84439; 84443

== ENCOUNTER → 2024-02-29 | Outpatient (CLI) | payer OTHER ==
--- NOTE | 2024-02-29 12:32 | DVH ---
US US GUIDANCE FOR NEEDLE PLACEME, HISTORY: TYROID NODULE PROCEDURE: An informed consent was obtained. Limited localization ultrasound of the thyroid gland was obtained. The right neck base was prepped with chlorhexidine which was allowed to dry and draped in the usual sterile fashion. Timeout was performed. The skin and soft tissues were infiltrated with 1% Xylocaine. With ultrasound guidance, multiple fine needle aspirate biopsies of the nodules were obtai brittany using a 25 gauge Secure-cut needle. The neck was cleaned and a sterile band-aid applied. The spec imens were sent to pathology for analysis. No immediate complication was identified. FINDINGS: Right upper/mid pole, solid thyroid nodule. Limited ultrasound of the thyroid during the b iopsy demonstrates biopsy needle within nodule. IMPRESSION: Successful ultrasound FNA biopsy of right thyroid nodule.
== END | disposition home or self-care (01) ==
LOC: XYW 11:05
PROVIDERS: ATTEND Internal Medicine
DX: E04.1 Nontoxic single thyroid nodule (principal)
CPT/HCPCS: 10005; 76536; 76942

== ENCOUNTER → 2024-03-07 | Outpatient (CLI) | payer OTHER ==
[2024-03-07 12:30] LABS: Basophils # (auto) 0 10 ^3/uL (0-0.2); Basophils % (auto) 0.4 % (0.0-2.0); Eosinophils # (auto) 0.1 10 ^3/uL (0-0.8); Eosinophils % (auto) 1.5 % (0.0-7.0); Hematocrit 44.1 % (36.0-46.0); Hemoglobin 14.8 g/dL (12.2-16.2); Lymphocytes # (auto) 3.5 10 ^3/uL (0.4-5.4); Mean Corpuscular Hemoglobin 28.7 pg (28.0-32.0); Mean Corpuscular Hgb Conc. 33.5 g/dL (32.0-36.0); Mean Corpuscular Volume 85.7 fL (80.0-100.0); Monocytes # (auto) 0.5 10 ^3/uL (0-1.3); Monocytes % (auto) 5.5 % (0.0-12.0); Neutrophils # (auto) 4.5 10 ^3/uL (1.6-8.6); Neutrophils % (auto) 52.6 % (37.0-80.0); Nucleated Red Blood Cells % 0.2 %; Platelet Count (auto) 367 10^3/uL (140-450); Red Blood Cells 5.15 10^6/uL (4.0-5.20); Red Cell Distribution Width 13.3 % (11.8-14.3); White Blood Cell 8.6 10^3/uL (4.4-10.8)
[2024-03-07 12:32] LABS: Erythrocyte Sedimentation Rate 7 mm/hr (0-20)
== END | disposition home or self-care (01) ==
LOC: LAB 11:11
PROVIDERS: ATTEND Internal Medicine
DX: R19.4 Change in bowel habit (principal)
CPT/HCPCS: 36415; 82270; 85025; 85652; 86141

== ENCOUNTER → 2024-03-08 | Outpatient (CLI) | payer OTHER | END | disposition home or self-care (01) | LOC: LAB 15:37 | PROVIDERS: ATTEND Internal Medicine | DX: Z12.11 Encounter for screening for malignant neoplasm of colon (principal); R19.4 Change in bowel habit | CPT/HCPCS: 82270; 87045; 87177; 87427 ==

== ENCOUNTER 2024-08-05 07:05 | Day surgery (SDC) | payer OTHER ==
[2024-07-31 11:19] LABS: Basophils # (auto) 0 10 ^3/uL (0-0.2); Basophils % (auto) 0.5 % (0.0-2.0); Eosinophils # (auto) 0.1 10 ^3/uL (0-0.8); Eosinophils % (auto) 1.6 % (0.0-7.0); Hematocrit 45.7 % (36.0-46.0); Hemoglobin 14.7 g/dL (12.2-16.2); Lymphocytes % (auto) 42.1 % (10.0-50.0); Mean Corpuscular Hgb Conc. 32.2 g/dL (32.0-36.0); Monocytes # (auto) 0.5 10 ^3/uL (0-1.3); Monocytes % (auto) 7.3 % (0.0-12.0); Neutrophils # (auto) 3.5 10 ^3/uL (1.6-8.6); Neutrophils % (auto) 48.5 % (37.0-80.0); Nucleated Red Blood Cells % 0.1 %; Platelet Count (auto) 366 10^3/uL (140-450); Red Blood Cells 5.25 10^6/uL (4.0-5.20); Red Cell Distribution Width 13.9 % (11.8-14.3); White Blood Cell 7.2 10^3/uL (4.4-10.8)
[2024-07-31 11:36] LABS: INR 0.93 (0.9-1.15); Partial Thromboplastin Time 27.1 SEC (24.5-34.5); Prothrombin Time 9.9 sec (9.3-11.8)
[2024-07-31 12:01] LABS: Alanine Aminotransferase 18 U/L (7-40); Anion Gap 7 (5-15); Aspartate Aminotransferase 14 U/L (13-40); BUN/Creatinine Ratio 24.4 (10.0-20.0); Blood Urea Nitrogen 19 mg/dL (9-23); Calcium 10.1 mg/dL (8.7-10.4); Carbon Dioxide 30 mmol/L (20-31); Chloride 104 mmol/L (98-107); Glucose 75 mg/dL (74-106); Sodium 141 mmol/L (136-145)
[2024-07-31 12:02] LABS: Albumin 5.2 g/dL (3.2-4.8); Alkaline Phosphatase 122 U/L (46-116)
[2024-07-31 12:04] LABS: Bilirubin, Total 0.6 mg/dL (0.2-1.0)
[~2024-08-05] VITALS: Ht 157.5 cm; Wt 72.6 kg
[~2024-08-05 07:05] MED LIST changes: -ASPI81CH43 PO; -CANA300T OR; +ESCI10TA PO; -LOVA20TA4 PO; +LOVA40TA72 PO; -METF-372 PO; -METO25TA93 PO; +PIO30T PO
[2024-08-05] MEDS ORDERED: diphenhdrAMINE HCL 50 MG/1 ML VL ONE (07:32)
[2024-08-05 09:29] VITALS: PULSE 79; RESP 19; O2SAT 99
[2024-08-05] MEDS: MIDAZOLAM HCL 2MG/2ML 2ml VIAL (1mg/ml) ONE (09:33)
[2024-08-05] MEDS: fentaNYL CITRATE 100 MCG/2 ML VL ONE (09:33)
--- NOTE | 2024-08-05 09:50 | DVHNC2 ---
Procedure - DATE OF PROCEDURE: August 05, 2024 SURGEON: MARYLU NEW MD REFERRING PROVIDER: Dr Zenon NUNEZ PRE-PROCEDURE DIAGNOSIS: 1. COLON CANCER SCREENING POSTPROCEDURE DIAGNOSIS 1. Two transverse colon polyps 2. Internal hemorrhoids 3. One descending colon polyp 4. Moderate left-sided diverticulosis Procedure performed 1. Colonoscopy with cold snare polypectomy 2. Colonoscopy with moderate sedation 3. Colonoscopy with cold biopsy polypectomy INDICATIONS FOR PROCEDURE: The patient is a 74-year-old female who presents for outpatient colonoscopy for screening, last colonoscopy was in 2014. MEDICATIONS USED: 4 mg of Versed IV and 75 mcg IV given in incremental doses DETAILS OF THE PROCEDURE: Informed consent was obtained after risks, benefits, and alternatives, were discussed at length with the patient. The patient gave consent to the procedure as well as the medication used for sedation. The patient was placed in the left lateral decubitus position. Digital rectal exam showed internal hemorrhoids. An Olympus variable torsion pediatric colonoscope was inserted into the rectum and advanced to the cecum. The cecum was identified by the ileocecal valve and the appendiceal orifice. The scope was then withdrawn the prep was good with only small amounts of liquid stool. The patient had two transverse colon polyps removed with cold snare polypectomy measuring 5 mm each. There was a small descending colon polyp measuring 3 mm removed with cold biopsy forceps. The patient had moderate left-sided diverticulosis. Retroflexion showed internal hemorrhoids. The patient tolerated the procedure well. [place] BOWEL PREP SCORE: 8 COLONOSCOPY START TIME: 937 CECUM TIME: 939 COLONOSCOPY END TIME: 947 IMPRESSION: 1. 3 colon polyps moderate left-sided diverticulosis and small internal hemorrhoids RECOMMENDATIONS: 1. Follow up in GI clinic for procedure and pathology results 2. High-fiber diet 3. Follow up with primary care physician 4. Medical management of the hemorrhoids 5. Repeat colonoscopy in three years unless otherwise indicated I WOULD LIKE TO THANK DR. Yarbrough FOR THIS REFERRAL MARYLU NEW MD Aug 05, 2024 09:50
[2024-08-05 09:52] VITALS: TEMP 97.8
[2024-08-05 10:16] VITALS: BP 128/54; PULSE 64; RESP 11; O2SAT 99
== END 2024-08-05 10:32 | disposition home or self-care (01) ==
LOC: GI 07:05
PROVIDERS: ATTEND Specialist
DX: Z12.11 Encounter for screening for malignant neoplasm of colon (principal); D12.3 Benign neoplasm of transverse colon; K63.5 Polyp of colon; K57.30 Diverticulosis of large intestine without perforation or abscess without bleeding; K64.8 Other hemorrhoids; I10 Essential (primary) hypertension; E11.9 Type 2 diabetes mellitus without complications; E78.00 Pure hypercholesterolemia, unspecified; E89.0 Postprocedural hypothyroidism; F41.9 Anxiety disorder, unspecified; Z79.899 Other long term (current) drug therapy; Z88.5 Allergy status to narcotic agent
CPT/HCPCS: 36415; 45380; 45385; 80053; 82962; 85025; 85610; 85730; 88305; J2250; J3010; J7030; 99152

== ENCOUNTER → 2024-08-08 | Outpatient (CLI) | payer OTHER ==
[2024-08-08 10:35] LABS: Alanine Aminotransferase 16 U/L (7-40); Alkaline Phosphatase 108 U/L (46-116); Anion Gap 8 (5-15); BUN/Creatinine Ratio 23.5 (10.0-20.0); Bilirubin, Total 0.8 mg/dL (0.2-1.0); Blood Urea Nitrogen 19 mg/dL (9-23); Calcium 10.4 mg/dL (8.7-10.4); Carbon Dioxide 28 mmol/L (20-31); Chloride 103 mmol/L (98-107); Cholesterol 179 mg/dL (< 200); LDL Cholesterol 95 mg/dL (< 100); Potassium 4.3 mmol/L (3.5-5.1); Sodium 139 mmol/L (136-145); Total Protein 8.2 g/dL (5.7-8.2); Triglycerides 135 mg/dL (< 150)
[2024-08-08 10:42] LABS: Albumin 5.3 g/dL (3.2-4.8); Aspartate Aminotransferase 13 U/L (13-40); Glucose 108 mg/dL (74-106); HDL Cholesterol 63 mg/dL (40-59)
[2024-08-08 12:22] LABS: Protein, Urine < 6.0 mg/dL (1-14)
[2024-08-08 12:23] LABS: Creatinine, Urine 73.82 mg/dL (30.0-125.0); Urine Protein/Creatinine Ratio 0.08
[2024-08-09 07:07] LABS: Thyroid Peroxidase (TPO) Ab 12 IU/mL (0-34)
[2024-08-09 20:06] LABS: Thyroglobulin Antibody <1.0 IU/mL (0.0-0.9)
== END | disposition home or self-care (01) ==
LOC: LAB 09:11
PROVIDERS: ATTEND Internal Medicine Endocrinology, Diabetes & Metabolism
DX: E11.9 Type 2 diabetes mellitus without complications (principal); E03.9 Hypothyroidism, unspecified
CPT/HCPCS: 36415; 80053; 80061; 82043; 82570; 83036; 84156; 84439; 84443; 86376; 86800

== ENCOUNTER 2024-11-02 10:09 | Emergency (ER) | payer OTHER ==
[~2024-11-02] VITALS: Ht 157.5 cm; Wt 73.9 kg
--- NOTE | 2024-11-02 11:01 | ED.PDOC ---
History of Present Illness HPI Comments Patient is a 74-year-old female presented to the ED with a chief complaint of right ankle swelling and pain. Patient reports that she has been having swelling which gets worse in the evening for the last almost 2 weeks associated with the pain but reports that she was able to manage until the weekend when it got worse. Pain and the swelling it worse by the evening and the patient has difficulty walking. Patient denied any fever or chills. Patient denied any foot injury or trauma, no similar episode in the past, no recent illness no travel, no history of immobilization. Patient is a able to bear weight on her foot. Denies pain or swelling in any other joints. Chief Complaint: Lower Extremity Time Seen by MD: 10:13 Primary Care Provider: NONE Allergies: Coded Allergies: Codeine (Unverified Allergy, Unknown, 12/14/14) Home Meds Reported Medications Escitalopram Oxalate (Lexapro) 10 Mg Tab, 1 TAB PO DAILY, #90 TAB 3 Refills 07/31/24 Pioglitazone Hydrochloride (ACTOS TABLET) 30 Mg Tb, 1 TAB PO DAILY, #30 TAB 5 Refills 07/31/24 Lovastatin (Lovastatin) 40 Mg Tab, 1 TAB PO DAILY, #30 TAB 5 Refills 07/31/24 Glipizide (Glipizide Er) 5 Mg Tab, 5 MG PO BID, TAB 03/10/22 Irbesartan (Avapro) 300 Mg Tab, 150 MG PO DAILY, TAB 03/10/22 Mode of Arrival: Ambulatory Past Medical History PAST MEDICAL HISTORY: DM, High Lipids, HTN Past Medical History (Other): Home medications include aspirin, glipizide, lovastatin, losartan, pioglitazone, omega-3 Surgical History: Denies all surgeries Surgical History (Other): Thyroid biopsy FIRE REGULATOR History: No Pertinent FIRE REGULATOR History Family History Family History: Reviewed,noncontributory to illness, No family hx of Cancer, No family hx of DM, No family hx of Heart henrique, No family hx of HTN, No family hx ofKidney henrique, No family hx of Liver henrique, No family hx of Lung henrique, No family hx of Stroke Social History Smoker: Non-Smoker Alcohol: Denies ETOH Use Drugs: Denies Drug Use Constitutional: denies: chills, diaphoresis, fatigue, fever, malaise, sweats, weakness, others EENTM: denies: blurred vision, double vision, ear bleeding, ear discharge, ear drainage, ear pain, ear ringing, eye pain, eye redness, hearing loss, mouth pain, mouth swelling, nasal discharge, nose bleeding, nose congestion, nose pain, photophobia, tearing, throat pain, throat swelling, voice changes, others Respiratory: denies: cough, hemoptysis, orthopnea, SOB at rest, shortness of breath, SOB with excertion, stridor, wheezing, others Cardiovascular: denies: chest pain, dizzy spells, diaphoresis, Dyspnea on exertion, edema, irregular heart beat, left arm pain, lightheadedness, palpitations, PND, syncope, others Gastrointestinal: denies: abdomen distended, abdominal pain, blood streaked bowels, constipated, diarrhea, dysphagia, difficulty swallowing, hematemesis, melena, nausea, poor appetite, poor fluid intake, rectal bleeding, rectal pain, vomiting, others Genitourinary: denies: abnormal vagina bleeding, burning, dyspareunia, dysuria, flank pain, frequency, hematuria, incontinence, pain, , vagina discharge , urgency, others Neurological: denies: dizziness, fainting, headache, left sided numbness, left sided weakness, numbness, paresthesia, pre-existing deficit, right sided numbness, right sided weakness, seizure, speech problems, tingling, tremors, weakness, others Musculoskeletal: reports: joint pain, joint swelling Integumetry: denies: bruises, change in color, change in hair/nails, dryness, laceration, lesions, lumps, rash, wounds, others Allergic/Immunocompromised: denies: Difficulty Healing, Frequent Infections, Hives, Itching, others Hematologic/Lymphatic: denies: anemia, blood clots, easy bleeding, easy bruising, swollen glands, others Endocrine: denies: excessive hunger, excessive sweating, excessive thirst, excessive urination, flushing, intolerance to cold, intolerance to heat, unexplained weight gain, unexplained weight loss, others Psychiatric: denies: anxiety, bipolar disorder, depression, hopeless, panic disorder, schizophrenia, sleepless, suicidal, others Physical Exam General Appearance: No Apparent Distress, Normal HEENT: Normal ENT Inspection, Pharynx Normal, TMs Normal Neck: Full Range of Motion, Non-Tender, Normal, Normal Inspection Respiratory: Chest Non-Tender, Lungs Clear, No Accessory Muscle Use, No Respiratory Distress, Normal Breath Sounds Cardiovascular: No Edema, No JVD, No Murmur, No Gallop, Normal Peripheral Pulses, Regular Rate/Rhythm Breast Exam: Deferred Gastrointestinal: No Organomegaly, Non Tender, No Pulsatile Mass, Normal Bowel Sounds, Soft Genitalia: Deferred Pelvic: Deferred Rectal: Deferred Extremities: No calf tenderness, Normal capillary refill, Normal inspection, Normal range of motion, Non-tender, No pedal edema Musculoskeletal : Location: Right Extremity Location: Ankle Apperance: Normal, Swelling (Mild), Tenderness: Mild Neurologic: Abnormal Gait (Very mild limping), Alert, lining stitcher II-XII nml as Tested, No Motor Deficits, Normal Affect, Normal Mood, No Sensory Deficits Cerebellar Function: Normal Reflexes: Normal Skin: Dry, Normal Color, Warm Peripheral Pulses: 2+ carotid (R), 2+ carotid (L), 2+ femoral (R), 2+ femoral (L), 2+ dorsalis pedis (R), 2+ dorsalis pedis (L), 2+ Radial (R), 2+ Radial (L) Lymphatic: No Adenopathy Was a procedure done? Was a procedure done?: No Differential Dx Considerations may include: Ligament injury arthritis Stress fracture X-Ray, Labs, Meds, VS Vital Signs Date Time Temp Pulse Resp B/P (MAP) Pulse Ox O2 Delivery O2 Flow Rate FiO2 11/02/24 10:34 97.6 68 18 153/98 (116) 97 97.6 Patient is a 74-year-old female came in with a chief complaint of right ankle pain for the last 2 weeks which has been going on and off and worsens with the end of the day. Patient did not have any signs of systemic illness including fever or chills, no body aches, no other joint involved. Patient denied any similar episode before. No signs of overlying erythema, range of motion intact, no cough tenderness, no history of recent travel or long flight, no recent immbolization. Ankle x-ray showed small plantar calcaneal enthesophyte, no evidence of acute fracture or dislocation, well-maintained visualized joint space. Patient's vitals were stable without any fever. Patient was discharged in stable condition and advised to NSAIDs like ibuprofen 400 mg t.i.d. p.r.n. and follow up with the PCP. Time of 1ST Reevaluation: 11:29 Reevaluation 1ST: Unchanged Patient Education/Counseling: Diagnosis, Treatment Family Education/Counseling: No Family Present SEPSIS Sepsis Screen Date sepsis recognized/suspect: Nov 02, 2024 Time Sepsis recognized/suspect: 102 Recent Procedure: No On Antibiotic Therapy: No Respiratory Rate >20: No Heart Rate >90: No Temp<36 C (96.8 F) or >38.3 C: No SBP <90 or MAP <65 mmHG: No New Acute Mental Status Change: No Is the patient on CPAP, BIPAP,: No Physician Orders R Ankle 3 View (11/02/24 10:49) Vital Signs Date Time Temp Pulse Resp B/P (MAP) Pulse Ox O2 Delivery O2 Flow Rate FiO2 11/02/24 10:34 97.6 68 18 153/98 (116) 97 97.6 Departure 1 Departure Time of Disposition: 12:15 Impression: Primary Impression: Arthritis Disposition: 01 HOME / SELF CARE / HOMELESS Condition: Stable Critical Care Note Critical Care Time?: No Stability Stability form required: No Heart Score Heart Score: Heart Score Response (Comments) Value History N/A 0 EKG N/A 0 Age N/A 0 Risk Factors N/A 0 Troponin N/A 0 Total 0 [facility] RESIDENT Nov 02, 2024 11:01
--- NOTE | 2024-11-02 11:19 | DVH ---
CLINICAL INDICATION: ANKLE PAIN AND SWELLING TECHNIQUE: 3 radiographic views of the right ankle were obtained. Comparison: None FINDINGS/IMPRESSION: There is no evidence of acute fracture or dislocation. Small plantar calcaneal enthesophyte. The visualized joint space is well maintained. The alignment is anatomical. There is no radiopaque foreign body.
[2024-11-02 12:34] VITALS: BP 152/76; PULSE 62; RESP 16; TEMP 97.6; O2SAT 97
[2024-11-03] MEDS ORDERED: MELO7.5T7 PO (14:04)
== END 2024-11-02 12:34 | disposition home or self-care (01) ==
LOC: ER 10:09
DX: M19.071 Primary osteoarthritis, right ankle and foot (principal); I10 Essential (primary) hypertension; E11.9 Type 2 diabetes mellitus without complications; E78.5 Hyperlipidemia, unspecified; Z79.84 Long term (current) use of oral hypoglycemic drugs; Z79.899 Other long term (current) drug therapy; Z98.890 Other specified postprocedural states; Z88.5 Allergy status to narcotic agent
CPT/HCPCS: 73610

== ENCOUNTER 2024-11-03 12:12 | Emergency (ER) | payer OTHER ==
[~2024-11-03] VITALS: Ht 157.5 cm; Wt 75.0 kg
--- NOTE | 2024-11-03 12:58 | ED.PDOC ---
Musculoskeletal HPI Comments A 74 YEAR-OLD FEMALE PRESENTS TO THE ED WITH A CHIEF COMPLAINT OF RIGHT FOOT PAIN OF X4 DAYS. PATIENT STATES THAT SHE WENT TO URGENT CARE PRIOR TO THE ED VISIT WHERE ULTRA DIAGNOSED HER WITH ARTHRITIS. PATIENT STATES THAT OF TODAY, SHE IS FEELING BETTER WITH LEG ELEVATION. PATIENT HAS NO FURTHER COMPLAINTS AT THIS TIME AND OTHERWISE DENIES FEVER, CHILLS, N/V, CHEST PAIN, OR TRAUMA TO THE LEG. PATIENT IS ALERT, ORIENTED X 4, AND HAS STEADY GAIT. Chief Complaint: EXTREMITY Time Seen by MD: 12:52 Primary Care Provider: NONE Reviewed Notes: Medications, Allergies Allergies: Coded Allergies: Codeine (Unverified Allergy, Unknown, 12/14/14) Home Meds Active Scripts Meloxicam (Meloxicam) 7.5 Mg Tab, 1 TAB PO BID, #30 TAB Prov:PAPITO CERRATO 11/03/24 Reported Medications Escitalopram Oxalate (Lexapro) 10 Mg Tab, 1 TAB PO DAILY, #90 TAB 3 Refills 07/31/24 Pioglitazone Hydrochloride (ACTOS TABLET) 30 Mg Tb, 1 TAB PO DAILY, #30 TAB 5 Refills 07/31/24 Lovastatin (Lovastatin) 40 Mg Tab, 1 TAB PO DAILY, #30 TAB 5 Refills 07/31/24 Glipizide (Glipizide Er) 5 Mg Tab, 5 MG PO BID, TAB 03/10/22 Irbesartan (Avapro) 300 Mg Tab, 150 MG PO DAILY, TAB 03/10/22 Information Source: Patient Mode of Arrival: Ambulatory Location: Right Extremity Location: Foot, Leg Timing: Hours Prehospital treatment: Treatment Severity: Mild, Moderate Bear Weight: Fully Pain: Mild Hand Dominance: Right Circumstances: Spontaneous Onset of Symptoms: Spontaneous Symptoms: Pain (RIGHT FOOT ) DVT Risk Factors: NONE Last Tetanus: UTD Associated signs and symptoms: Leg pain, Foot pain (RIGHT FOOT ) Past Medical History PAST MEDICAL HISTORY: DM, High Lipids, HTN Surgical History: Denies all surgeries FIRMWARE TEST ENGINEER History: No Pertinent FIRMWARE TEST ENGINEER History Family History Family History: Reviewed,noncontributory to illness, No family hx of Cancer, No family hx of DM, No family hx of Heart henrique, No family hx of HTN, No family hx ofKidney henrique, No family hx of Liver henrique, No family hx of Lung henrique, No family hx of Stroke Social History Smoker: Non-Smoker Alcohol: Denies ETOH Use Drugs: Denies Drug Use Constitutional: denies: chills, diaphoresis, fatigue, fever, malaise, sweats, weakness, others EENTM: denies: blurred vision, double vision, ear bleeding, ear discharge, ear drainage, ear pain, ear ringing, eye pain, eye redness, hearing loss, mouth pain, mouth swelling, nasal discharge, nose bleeding, nose congestion, nose pain, photophobia, tearing, throat pain, throat swelling, voice changes, others Respiratory: denies: cough, hemoptysis, orthopnea, SOB at rest, shortness of breath, SOB with excertion, stridor, wheezing, others Cardiovascular: denies: chest pain, dizzy spells, diaphoresis, Dyspnea on exertion, edema, irregular heart beat, left arm pain, lightheadedness, palpitations, PND, syncope, others Gastrointestinal: denies: abdomen distended, abdominal pain, blood streaked bowels, constipated, diarrhea, dysphagia, difficulty swallowing, hematemesis, melena, nausea, poor appetite, poor fluid intake, rectal bleeding, rectal pain, vomiting, others Genitourinary: denies: abnormal vagina bleeding, burning, dyspareunia, dysuria, flank pain, frequency, hematuria, incontinence, pain, , vagina discharge, urgency, others Neurological: denies: dizziness, fainting, headache, left sided numbness, left sided weakness, numbness, paresthesia, pre-existing deficit, right sided numbness, right sided weakness, seizure, speech problems, tingling, tremors, weakness, others Musculoskeletal: reports: muscle pain, others (RIGHT FOOT PAIN ); denies: back pain, gout, joint pain, joint swelling, muscle stiffness, neck pain Integumetry: denies: bruises, change in color, change in hair/nails, dryness, laceration, lesions, lumps, rash, wounds, others Allergic/Immunocompromised: denies: Difficulty Healing, Frequent Infections, Hives, Itching, others Hematologic/Lymphatic: denies: anemia, blood clots, easy bleeding, easy bruising, swollen glands, others Endocrine: denies: excessive hunger, excessive sweating, excessive thirst, excessive urination, flushing, intolerance to cold, intolerance to heat, unexpl ained weight gain, unexplained weight loss, others Psychiatric: denies: anxiety, bipolar disorder, depression, hopeless, panic disorder, schizophrenia, sleepless, suicidal, others All Other Systems: Reviewed and Negative Physical Exam General Appearance: No Apparent Distress, Normal HEENT: Normal ENT Inspection, PERRL/EOMI, Pharynx Normal, TMs Normal Neck: Full Range of Motion, Non-Tender, Normal, Normal Inspection Respiratory: Chest Non-Tender, Lungs Clear, No Accessory Muscle Use, No Respi ratory Distress, Normal Breath Sounds Cardiovascular: No Edema, No JVD, No Murmur, No Gallop, Normal Peripheral Pulses, Regular Rate/Rhythm Breast Exam: Deferred Gastrointestinal: No Organomegaly, Non Tender, No Pulsatile Mass, Normal Bowel Sounds, Soft Genitalia: Deferred Pelvic: Deferred Rectal: Deferred Extremities: No calf tenderness, Normal capillary refill, Normal range of motion, No pedal edema, Tender (RIGHT FOOT TO RIGHT LOWER LEG, NO BONY TENDERNESS AND DEFORMITY, NO DVT SIGNS. ) Musculoskeletal : Apperance: Normal Neurologic: Alert, auto damage appraiser II-XII nml as Tested, No Motor Deficits, Normal Affect, Normal Mood, No Sensory Deficits Cerebellar Function: Normal Reflexes: Normal Skin: Dry, Normal Color, Warm Peripheral Pulses: 2+ carotid (R), 2+ carotid (L) Lymphatic: No Adenopathy Was a procedure done? Was a procedure done?: No Differential Diagnosis EXT Differential Diagnosis: Deep Vein Thrombosis, Fracture, Sprain, Strain, Arthritis X-Ray, Labs, Meds, VS Vital Signs Date Time Temp Pulse Resp B/P (MAP) Pulse Ox O2 Delivery O2 Flow Rate FiO2 11/03/24 13:53 70 18 98 Room Air 11/03/24 13:53 98.2 70 18 138/61 (86) 98 98.2 11/03/24 12:15 98.5 76 20 167/75 (105) 96 98.5 Right lower extremity venous duplex Clinical History: RIGHT FOOT PAIN TO RIGHT LOWER LEG Comparison: None Technique: Duplex Doppler evaluation of the deep venous system of the right lower extremity from the common femoral vein to the popliteal vein including color Doppler and spectral/pulsed waveform analysis was performed. Findings: The common femoral vein demonstrates appropriate compressibility and waveform variability. There is compressibility/patency of the great saphenous vein at the proximal thigh. The femoral vein demonstrates appropriate compressibility and waveform variability. The deep femoral vein demonstrates appropriate compressibility and waveform variability. The popliteal vein demonstrates appropriate compressibility and waveform variability. There is normal compressibility at the tibioperoneal trunk. Impression: 1. No right femoropopliteal venous thrombosis. 2. Contralateral common femoral vein is patent. X-Ray, Labs, Meds, VS Comment EXTERNAL MEDICAL RECORDS: NONE INDEPENDENT HISTORIANS: NONE SOCIAL DETERMINANTS OF HEALTH: NONE LABS ORDERED: NONE REVIEWED AND INTERPRETED RESULTS: NONE IMAGING ORDERED: RIGHT LOWER DVT ULTRASOUND TREATMENTS ORDERED: NONE PATIENT'S CASE AND RESULTS HAVE BEEN DISCUSSED WITH THE ED ATTENDING PHYSICIAN, DR. JONAS, AND THEY AGREE WITH MY PLAN OF CARE. I HAVE DISCUSSED IMAGING AND LAB RESULTS WITH THE PATIENT AND HAVE INSTRUCTED THE PATIENT TO FOLLOW UP WITH THEIR PCP IN 1-2 DAYS. THE PATIENT FULLY UNDERSTANDS THEIR RESULTS AND ARE AWARE THEY NEED TO FOLLOW UP WITH THEIR PCP FOR FURTHER EVALUATION IF THEIR SYMPTOMS PERSIST. Images Reviewed?: Images reviewed and evaluated by me Time of 1ST Reevaluation: 14:14 Reevaluation 1ST: Improved Patient Education/Counseling: Diagnosis, Treatment, Need For Follow Up Family Education/Counseling: Diagnosis, Treatment, Need For Follow Up Medical Screening: No EMC Exist At This Time Departure 1 Departure Time of Disposition: 14:14 Impression: Primary Impression: No deep vein thrombosis (DVT) Additional Impression: Arthritis of right foot Disposition: 01 HOME / SELF CARE / HOMELESS Condition: Stable Additional Instructions: F/U PCP IN 2 DAYS RECHECK. IF CONDITION BECOME WORSE, RETURN TO ED JESSIE. e-Prescriptions Meloxicam (Meloxicam) 7.5 Mg Tab 1 TAB PO BID, #30 TAB Prov: PAPITO CERRATO 11/03/24 Discharged With: Self Critical Care Note Critical Care Time?: No Stability Stability form required: No Heart Score Heart Score: Heart Score Response (Comments) Value History N/A 0 EKG N/A 0 Age N/A 0 Risk Factors N/A 0 Troponin N/A 0 Total 0 I personally scribed for PAPITO CERRATO ([email or web address]) on 11/03/24 at 12:58. Electronically submitted by Marleny Raza (Orgger). I personally scribed for PAPITO CERRATO ([email or web address]) on 11/03/24 at 12:58. Electronically submitted by Marleny Raza ([employer]gger). I personally scribed for PAPITO CERRATO ([email or web address]) on 11/03/24 at 13:47. Electronically submitted by Marleny Raza ([employer]gger). I personally scribed for PAPITO CERRATO ([email or web address]) on 11/03/24 at 14:05. Electronically submitted by Marleny Raza ([email or web address]). PAPITO CERRATO Nov 03, 2024 12:58
--- NOTE | 2024-11-03 13:46 | DVH ---
Right lower extremity venous duplex Clinical History: RIGHT FOOT PAIN TO RIGHT LOWER LEG Comparison: None Technique: Duplex Doppler evaluation of the deep venous system of the right lower extremity from the common femo ral vein to the popliteal vein including color Doppler and spectral/pulsed waveform analysis was perf ormed. Findings: The common femoral vein demonstrates appropriate compressibility and waveform variability. There is compressibility/patency of the great saphenous vein at the proximal thigh. The femoral vein demonstrates appropriate compressibility and waveform variability. The deep femoral vein demonstrates appropriate compressibility and waveform variability. The popliteal vein demonstrates appropriate compressibility and waveform variability. There is normal compressibility at the tibioperoneal trunk. Impression: 1. No right femoropopliteal venous thrombosis. 2. Contralateral common femoral vein is patent.
[2024-11-03 13:53] VITALS: BP 138/61; PULSE 70; RESP 18; TEMP 98.2; O2SAT 98
[2024-11-03] MEDS ORDERED: MELO7.5T7 PO (14:04)
== END 2024-11-03 14:07 | disposition home or self-care (01) ==
LOC: ER 12:12
DX: M19.071 Primary osteoarthritis, right ankle and foot (principal); I10 Essential (primary) hypertension; E11.9 Type 2 diabetes mellitus without complications; E78.5 Hyperlipidemia, unspecified; Z79.84 Long term (current) use of oral hypoglycemic drugs; Z79.899 Other long term (current) drug therapy; Z88.5 Allergy status to narcotic agent; X58.XXXA Exposure to other specified factors, initial encounter; Y93.89 Activity, other specified; Y92.89 Other specified places as the place of occurrence of the external cause; Y99.8 Other external cause status
CPT/HCPCS: 93971

== ENCOUNTER 2024-11-20 11:54 | Outpatient (CLI) | payer OTHER ==
[~2024-11-20 11:54] MED LIST changes: +MELO7.5T7 PO
[2024-11-20 12:15] LABS: Hematocrit 43.4 % (36.0-46.0); Hemoglobin 14.3 g/dL (12.2-16.2); Mean Corpuscular Hemoglobin 28.8 pg (28.0-32.0); Mean Corpuscular Volume 87.4 fL (80.0-100.0); Nucleated Red Blood Cells % 0.0 %
[2024-11-20 13:18] LABS: Alanine Aminotransferase 16 U/L (7-40); Anion Gap 7 (5-15); BUN/Creatinine Ratio 21.6 (10.0-20.0); Bilirubin, Total 0.5 mg/dL (0.2-1.0); Blood Urea Nitrogen 16 mg/dL (9-23); Calcium 10.0 mg/dL (8.7-10.4); Carbon Dioxide 29 mmol/L (20-31); Chloride 107 mmol/L (98-107); Potassium 4.3 mmol/L (3.5-5.1); Sodium 143 mmol/L (136-145); Total Protein 7.5 g/dL (5.7-8.2)
[2024-11-20 13:23] LABS: Albumin 4.9 g/dL (3.2-4.8); Alkaline Phosphatase 126 U/L (46-116); Glucose 115 mg/dL (74-106)
== END 2024-11-20 17:00 | disposition home or self-care (01) ==
LOC: LAB 11:54
PROVIDERS: ATTEND Internal Medicine
DX: E11.9 Type 2 diabetes mellitus without complications (principal); R53.83 Other fatigue
CPT/HCPCS: 36415; 80053; 82306; 82607; 83036; 84443; 85025

== ENCOUNTER 2024-11-21 14:12 | Outpatient (CLI) | payer OTHER ==
[2024-11-21 14:39] LABS: Urine Protein, UAD TRACE (Negative)
== END 2024-11-21 17:00 | disposition home or self-care (01) ==
LOC: LAB 14:12
PROVIDERS: ATTEND Registered Nurse
DX: N39.0 Urinary tract infection, site not specified (principal); R30.0 Dysuria
CPT/HCPCS: 81001; 87086

== ENCOUNTER 2025-01-23 10:42 | Outpatient (CLI) | payer OTHER | END 2025-01-23 17:00 | disposition home or self-care (01) | LOC: LAB 10:42 | PROVIDERS: ATTEND Urology | DX: R31.9 Hematuria, unspecified (principal); R32 Unspecified urinary incontinence | CPT/HCPCS: 87086 ==